=== PATIENT | female | born 1940 | race Caucasian/White ===

== ENCOUNTER → 2022-02-03 | Outpatient (CLI) | payer MEDICARE ==
[2022-02-03 09:36] LABS: BASO # 0.02 K/mm3 (0.02-0.10); EOS # 0.09 K/mm3 (0.04-0.40); HEMATOCRIT 37.7 % (37.0-47.0); HEMOGLOBIN 12.2 g/dL (12.5-16.0); LYMPH# 1.46 K/mm3 (1.50-4.00); MEAN CELL VOLUME 92 fl (78-100); MEAN CORPUSCULAR HEMOGLOBIN 30 pg (27-31); MEAN CORPUSCULAR HGB CONC 32 g/dL (33-37); MEAN PLATELET VOLUME 9.6 fl (7.4-10.4); MONO # 0.84 K/mm3 (0.20-0.80); NEU # 6.18 K/mm3 (1.40-6.50); PLATELET COUNT 273 K/mm3 (130-400); RED BLOOD COUNT 4.12 M/mm3 (4.10-5.30); RED CELL DISTRIBUTION WIDTH 15.1 % (11.5-14.5); WHITE BLOOD COUNT 8.6 K/mm3 (4.8-10.8)
[2022-02-03 09:46] LABS: ALBUMIN 3.6 g/dL (3.4-4.8); POTASSIUM 4.1 mmol/L (3.5-5.1); SODIUM 140 mmol/L (136-145)
[2022-02-03 09:48] LABS: CALCIUM 9.1 mg/dL (8.3-10.5)
[2022-02-03 09:49] LABS: GLUCOSE 87 mg/dL (65-105); TOTAL PROTEIN 6.6 g/dL (6.2-8.1)
[2022-02-03 09:50] LABS: CARBON DIOXIDE 22 mmol/L (23-31)
[2022-02-03 09:51] LABS: TOTAL BILIRUBIN 0.4 mg/dL (0.2-1.2)
[2022-02-03 09:54] LABS: AST-SGOT 21 U/L (5-34)
[2022-02-03 09:55] LABS: ALT/SGPT 19 U/L (0-55)
[2022-02-03 10:15] LABS: D-DIMER 1.22 mg/L FEU (0.15-0.50); TROPONIN-I < 0.030 ng/mL (<0.030)
== END ==
LOC: RAD 08:57
PROVIDERS: Nurse Practitioner Family
DX: R06.00 Dyspnea, unspecified (principal); M79.89 Other specified soft tissue disorders

== ENCOUNTER → 2022-02-27 | Outpatient (CLI) | payer MEDICARE ==
[2022-02-27 17:15] LABS: BASO # 0.04 K/mm3 (0.02-0.10); EOS # 0.22 K/mm3 (0.04-0.40); EOS % 2.2 % (1.0-5.0); HEMATOCRIT 39.2 % (37.0-47.0); HEMOGLOBIN 12.4 g/dL (12.5-16.0); LYMPH# 2.01 K/mm3 (1.50-4.00); MEAN CELL VOLUME 95 fl (78-100); MEAN CORPUSCULAR HEMOGLOBIN 30 pg (27-31); MEAN CORPUSCULAR HGB CONC 32 g/dL (33-37); MONO # 1.06 K/mm3 (0.20-0.80); NEU # 6.52 K/mm3 (1.40-6.50); PLATELET COUNT 230 K/mm3 (130-400); RED BLOOD COUNT 4.14 M/mm3 (4.10-5.30); RED CELL DISTRIBUTION WIDTH 15.2 % (11.5-14.5); WHITE BLOOD COUNT 9.9 K/mm3 (4.8-10.8)
[2022-02-27 17:27] LABS: ALBUMIN 3.7 g/dL (3.4-4.8); POTASSIUM 3.9 mmol/L (3.5-5.1)
[2022-02-27 17:28] LABS: CALCIUM 9.4 mg/dL (8.3-10.5)
[2022-02-27 17:29] LABS: TOTAL PROTEIN 6.9 g/dL (6.2-8.1)
[2022-02-27 17:31] LABS: TOTAL BILIRUBIN 0.3 mg/dL (0.2-1.2)
[2022-02-27 18:33] LABS: D-DIMER 1.44 mg/L FEU (0.15-0.50)
== END ==
LOC: LAB 17:06
PROVIDERS: Nurse Practitioner Family
DX: R22.42 Localized swelling, mass and lump, left lower limb (principal)

== ENCOUNTER → 2022-02-28 | Outpatient (CLI) | payer MEDICARE | LOC: RAD 10:26 | DX: R22.42 Localized swelling, mass and lump, left lower limb (principal) ==

== ENCOUNTER → 2022-04-11 | Outpatient (CLI) | payer MEDICARE ==
[~2022-04-11] MED LIST: ALENDRONATE SOD35 M1 PO; ALLOPURINOL300 M1 PO; AMITRIPTYLINE H25 M2 PO; CEPHALEXIN500 M1 PO; DULOXETINE30 MG PO; DULOXETINE60 MG PO; FERROUS SULFAT325 M4 PO; INDAPAMIDE1.25 M1 PO; JARDIANCE10 MG PO; NORCO 325 MG-51 TA1 PO; NORVASC 10MG10 MG PO; PERCOCET 325 MG1 TA2 PO; POTASSIUM CHLO20 ME4 PO; PROAIR HFA0.09 MG/AC IH; ROPINIROLE HYDRO4 MG PO
[2022-04-11 13:02] LABS: BASO # 0.02 K/mm3 (0.02-0.10); EOS # 0.12 K/mm3 (0.04-0.40); EOS % 1.7 % (1.0-5.0); HEMATOCRIT 32.2 % (37.0-47.0); HEMOGLOBIN 10.3 g/dL (12.5-16.0); MEAN CELL VOLUME 92 fl (78-100); MEAN CORPUSCULAR HEMOGLOBIN 30 pg (27-31); MEAN CORPUSCULAR HGB CONC 32 g/dL (33-37); MEAN PLATELET VOLUME 9.3 fl (7.4-10.4); NEU # 4.57 K/mm3 (1.40-6.50); PLATELET COUNT 306 K/mm3 (130-400); RED BLOOD COUNT 3.49 M/mm3 (4.10-5.30); RED CELL DISTRIBUTION WIDTH 15.6 % (11.5-14.5); WHITE BLOOD COUNT 7.1 K/mm3 (4.8-10.8)
[2022-04-11 13:05] LABS: ALBUMIN 3.2 g/dL (3.4-4.8)
[2022-04-11 13:07] LABS: CALCIUM 9.4 mg/dL (8.3-10.5)
[2022-04-11 13:08] LABS: TOTAL PROTEIN 6.4 g/dL (6.2-8.1)
[2022-04-11 13:10] LABS: TOTAL BILIRUBIN 0.2 mg/dL (0.2-1.2)
[2022-04-11 14:37] LABS: URINE APPEARANCE CLEAR; URINE BILIRUBIN NEGATIVE (NEGATIVE); URINE COLOR YELLOW; URINE KETONE NEGATIVE (NEGATIVE); URINE NITRATE NEGATIVE (NEGATIVE); URINE PROTEIN(semi-quant) TRACE (NEGATIVE)
[2022-04-11 14:38] LABS: URINE BLOOD NEGATIVE (NEGATIVE); URINE LEUKOCYTE ESTERASE 1+ (NEGATIVE); URINE MUCUS PRESENT (NOT PRESENT)
== END ==
LOC: LAB 12:33
PROVIDERS: Nurse Practitioner
DX: F32.A Depression, unspecified (principal); R44.1 Visual hallucinations

== ENCOUNTER 2022-04-17 09:44 | Outpatient (RCR) | payer MEDICARE | END 2022-05-08 | disposition home or self-care (01) | LOC: OT | DX: S42.202D Unspecified fracture of upper end of left humerus, subsequent encounter for fracture with routine healing (principal); X58.XXXD Exposure to other specified factors, subsequent encounter ==

== ENCOUNTER → 2022-05-01 | Outpatient (CLI) | payer MEDICARE | LOC: RAD 09:19 | DX: S42.132A Displaced fracture of coracoid process, left shoulder, initial encounter for closed fracture (principal); X58.XXXA Exposure to other specified factors, initial encounter ==

== ENCOUNTER → 2022-05-04 | Outpatient (CLI) | payer MEDICARE ==
[2022-05-04 15:10] LABS: ALBUMIN 3.6 g/dL (3.4-4.8); POTASSIUM 3.9 mmol/L (3.5-5.1)
[2022-05-04 15:11] LABS: CALCIUM 9.5 mg/dL (8.3-10.5)
[2022-05-04 15:14] LABS: TOTAL BILIRUBIN 0.3 mg/dL (0.2-1.2)
== END ==
LOC: LAB 14:35
PROVIDERS: Nurse Practitioner
DX: I87.2 Venous insufficiency (chronic) (peripheral) (principal); I50.9 Heart failure, unspecified

== ENCOUNTER → 2022-12-14 | Outpatient (CLI) | payer MEDICARE ==
[2022-12-14 12:42] LABS: BASO # 0.01 K/mm3 (0.02-0.10); EOS % 1.4 % (1.0-5.0); HEMATOCRIT 40.5 % (37.0-47.0); HEMOGLOBIN 12.8 g/dL (12.5-16.0); LYMPH# 1.69 K/mm3 (1.50-4.00); MEAN CELL VOLUME 88 fl (78-100); MEAN CORPUSCULAR HEMOGLOBIN 28 pg (27-31); MEAN CORPUSCULAR HGB CONC 32 g/dL (33-37); MEAN PLATELET VOLUME 9.9 fl (7.4-10.4); MONO # 0.65 K/mm3 (0.20-0.80); NEU # 4.82 K/mm3 (1.40-6.50); PLATELET COUNT 258 K/mm3 (130-400); RED CELL DISTRIBUTION WIDTH 15.7 % (11.5-14.5); WHITE BLOOD COUNT 7.3 K/mm3 (4.8-10.8)
[2022-12-14 12:49] LABS: ALBUMIN 3.7 g/dL (3.4-4.8)
[2022-12-14 12:50] LABS: POTASSIUM 4.1 mmol/L (3.5-5.1); SODIUM 138 mmol/L (136-145)
[2022-12-14 12:51] LABS: CALCIUM 9.9 mg/dL (8.3-10.5)
[2022-12-14 12:52] LABS: GLUCOSE 82 mg/dL (65-105); TOTAL PROTEIN 6.9 g/dL (6.2-8.1)
[2022-12-14 12:53] LABS: CARBON DIOXIDE 24 mmol/L (23-31)
[2022-12-14 12:54] LABS: TOTAL BILIRUBIN 0.3 mg/dL (0.2-1.2)
[2022-12-14 12:57] LABS: AST-SGOT 22 U/L (5-34)
[2022-12-14 12:58] LABS: ALT/SGPT 14 U/L (0-55)
[2022-12-14 13:49] LABS: TROPONIN-I < 0.030 ng/mL (<0.030)
== END ==
LOC: AMSURD 12:22
PROVIDERS: Nurse Practitioner
DX: R07.9 Chest pain, unspecified (principal)

== ENCOUNTER → 2022-12-19 | Outpatient (CLI) | payer MEDICARE ==
[2022-12-19 14:17] LABS: PROTHROMBIN TIME 9.9 SECONDS (9.0-12.0)
[2022-12-19 14:35] LABS: URINE APPEARANCE CLEAR; URINE BILIRUBIN NEGATIVE (NEGATIVE); URINE BLOOD NEGATIVE (NEGATIVE); URINE COLOR YELLOW; URINE GLUCOSE NEGATIVE (NEGATIVE); URINE KETONE NEGATIVE (NEGATIVE); URINE LEUKOCYTE ESTERASE NEGATIVE (NEGATIVE); URINE NITRATE NEGATIVE (NEGATIVE); URINE PROTEIN(semi-quant) TRACE (NEGATIVE); URINE UROBILINOGEN NORMAL (NORMAL)
== END ==
LOC: LAB 13:42
PROVIDERS: Nurse Practitioner
DX: Z01.811 Encounter for preprocedural respiratory examination (principal)

== ENCOUNTER → 2023-01-22 | Outpatient (CLI) | payer MEDICARE | LOC: RAD 10:59 | DX: Z96.611 Presence of right artificial shoulder joint (principal) ==

== ENCOUNTER → 2023-02-05 | Outpatient (CLI) | payer MEDICARE | LOC: RAD 11:11 | DX: M25.511 Pain in right shoulder (principal); Z96.611 Presence of right artificial shoulder joint ==

== ENCOUNTER → 2023-04-09 | Outpatient (CLI) | payer MEDICARE ==
[2023-04-09 09:45] LABS: BASO # 0.01 K/mm3 (0.02-0.10); EOS # 0.07 K/mm3 (0.04-0.40); EOS % 0.8 % (1.0-5.0); HEMATOCRIT 39.2 % (37.0-47.0); HEMOGLOBIN 12.3 g/dL (12.5-16.0); LYMPH# 2.11 K/mm3 (1.50-4.00); MEAN CELL VOLUME 85 fl (78-100); MEAN CORPUSCULAR HEMOGLOBIN 27 pg (27-31); MEAN CORPUSCULAR HGB CONC 31 g/dL (33-37); MEAN PLATELET VOLUME 9.9 fl (7.4-10.4); MONO # 0.94 K/mm3 (0.20-0.80); NEU # 6.03 K/mm3 (1.40-6.50); PLATELET COUNT 316 K/mm3 (130-400); RED CELL DISTRIBUTION WIDTH 14.4 % (11.5-14.5); WHITE BLOOD COUNT 9.2 K/mm3 (4.8-10.8)
[2023-04-09 09:58] LABS: ALBUMIN 3.8 g/dL (3.4-4.8)
[2023-04-09 09:59] LABS: CALCIUM 9.3 mg/dL (8.3-10.5)
[2023-04-09 10:00] LABS: TOTAL PROTEIN 7.4 g/dL (6.2-8.1)
[2023-04-09 10:02] LABS: PH-URINE 5.5 (5.0 - 8.0); TOTAL BILIRUBIN 0.3 mg/dL (0.2-1.2); URINE APPEARANCE CLEAR (CLEAR); URINE BILIRUBIN NEGATIVE (NEGATIVE); URINE BLOOD TRACE-INTACT (NEGATIVE); URINE COLOR YELLOW (YELLOW); URINE GLUCOSE 2+ (NEGATIVE); URINE KETONE NEGATIVE (NEGATIVE); URINE LEUKOCYTE ESTERASE NEGATIVE (NEGATIVE); URINE NITRATE NEGATIVE (NEGATIVE); URINE PROTEIN(semi-quant) 1+ (NEGATIVE)
[2023-04-09 10:10] LABS: URINE MUCUS PRESENT (NOT PRESENT)
[2023-04-09 10:24] LABS: PROTHROMBIN TIME 9.8 SECONDS (9.0-12.0)
== END ==
LOC: LAB 09:11
PROVIDERS: Nurse Practitioner
DX: Z01.818 Encounter for other preprocedural examination (principal)

== ENCOUNTER → 2023-07-17 | Outpatient (CLI) | payer MEDICARE ==
[2023-07-17 12:30] LABS: BASO # 0.02 K/mm3 (0.02-0.10); EOS # 0.09 K/mm3 (0.04-0.40); EOS % 1.2 % (1.0-5.0); HEMATOCRIT 35.6 % (37.0-47.0); HEMOGLOBIN 11.1 g/dL (12.5-16.0); LYMPH# 1.55 K/mm3 (1.50-4.00); MEAN CELL VOLUME 85 fl (78-100); MEAN CORPUSCULAR HEMOGLOBIN 27 pg (27-31); MEAN CORPUSCULAR HGB CONC 31 g/dL (33-37); MEAN PLATELET VOLUME 9.7 fl (7.4-10.4); MONO # 0.69 K/mm3 (0.20-0.80); NEU # 4.99 K/mm3 (1.40-6.50); PLATELET COUNT 337 K/mm3 (130-400); RED BLOOD COUNT 4.17 M/mm3 (4.10-5.30); RED CELL DISTRIBUTION WIDTH 15.7 % (11.5-14.5); WHITE BLOOD COUNT 7.3 K/mm3 (4.8-10.8)
[2023-07-17 12:41] LABS: ALBUMIN 3.5 g/dL (3.4-4.8)
[2023-07-17 12:42] LABS: CALCIUM 9.9 mg/dL (8.3-10.5)
[2023-07-17 12:43] LABS: TOTAL PROTEIN 6.6 g/dL (6.2-8.1)
[2023-07-17 12:45] LABS: TOTAL BILIRUBIN 0.3 mg/dL (0.2-1.2)
== END ==
LOC: RAD 11:57
PROVIDERS: Nurse Practitioner
DX: L03.115 Cellulitis of right lower limb (principal); M25.561 Pain in right knee; Z86.79 Personal history of other diseases of the circulatory system; Z96.651 Presence of right artificial knee joint

== ENCOUNTER → 2023-09-25 | Outpatient (CLI) | payer MEDICARE | LOC: LAB 10:13 | DX: E55.9 Vitamin D deficiency, unspecified (principal) ==

== ENCOUNTER → 2023-09-30 | Outpatient (CLI) | payer MEDICARE | LOC: RAD 12:15 | DX: S09.90XA Unspecified injury of head, initial encounter (principal); Z87.39 Personal history of other diseases of the musculoskeletal system and connective tissue; W01.0XXA Fall on same level from slipping, tripping and stumbling without subsequent striking against object, initial encounter; Z96.611 Presence of right artificial shoulder joint ==

== ENCOUNTER → 2023-10-02 | Outpatient (CLI) | payer MEDICARE | LOC: RAD 09:15 | DX: M81.0 Age-related osteoporosis without current pathological fracture (principal); S09.90XA Unspecified injury of head, initial encounter; R79.1 Abnormal coagulation profile; X58.XXXA Exposure to other specified factors, initial encounter ==

== ENCOUNTER → 2023-10-23 | Outpatient (CLI) | payer MEDICARE ==
[~2023-10-23] MED LIST changes: +Denosumab 60 MG/ML SYRINGE SQ ONE
[2023-10-23 10:33] VITALS: BP 112/68
== END ==
LOC: AMSURD 08:53 → RAD 08:53
DX: S42.121A Displaced fracture of acromial process, right shoulder, initial encounter for closed fracture (principal); M81.0 Age-related osteoporosis without current pathological fracture; Z96.611 Presence of right artificial shoulder joint; X58.XXXA Exposure to other specified factors, initial encounter
CPT/HCPCS: J0897

== ENCOUNTER 2024-01-03 14:08 | Emergency (ER) | payer MEDICARE ==
[~2024-01-03] VITALS: Ht 147.3 cm; Wt 53.2 kg
[~2024-01-03 14:08] MED LIST changes: -Denosumab 60 MG/ML SYRINGE SQ ONE
[2024-01-03 14:36] VITALS: BP 118/67
[2024-01-03] MEDS ORDERED: VITAMIN D3125 MC4 PO (14:57)
[2024-01-03] MEDS ORDERED: INDAPAMIDE1.25 M1 PO (14:58)
[2024-01-03] MEDS ORDERED: AMITRIPTYLINE H25 M2 PO (14:58)
[2024-01-03] MEDS ORDERED: AMITRIPTYLINE H50 M1 PO (14:58)
[2024-01-03] MEDS ORDERED: JARDIANCE10 MG PO (14:59)
[2024-01-03 15:54] LABS: BASO # 0.01 K/mm3 (0.02-0.10); EOS # 0.11 K/mm3 (0.04-0.40); EOS % 1.3 % (1.0-5.0); HEMATOCRIT 35.9 % (37.0-47.0); HEMOGLOBIN 11.6 g/dL (12.5-16.0); LYMPH# 1.88 K/mm3 (1.50-4.00); MEAN CELL VOLUME 87 fl (78-100); MEAN CORPUSCULAR HEMOGLOBIN 28 pg (27-31); MEAN CORPUSCULAR HGB CONC 32 g/dL (33-37); MEAN PLATELET VOLUME 9.8 fl (7.4-10.4); NEU # 5.89 K/mm3 (1.40-6.50); PLATELET COUNT 236 K/mm3 (130-400); RED BLOOD COUNT 4.15 M/mm3 (4.10-5.30); RED CELL DISTRIBUTION WIDTH 15.7 % (11.5-14.5); WHITE BLOOD COUNT 8.7 K/mm3 (4.8-10.8)
== END 2024-01-03 16:16 | disposition home or self-care (01) ==
LOC: ED 14:08
PROVIDERS: Family Medicine
DX: R19.5 Other fecal abnormalities (principal); F17.200 Nicotine dependence, unspecified, uncomplicated

== ENCOUNTER → 2024-01-16 | Outpatient (CLI) | payer MEDICARE ==
[~2024-01-16] MED LIST changes: +AMITRIPTYLINE H50 M1 PO; +VITAMIN D3125 MC4 PO
== END ==
LOC: RAD 13:32
DX: M48.02 Spinal stenosis, cervical region (principal); I67.82 Cerebral ischemia; R90.82 White matter disease, unspecified

== ENCOUNTER → 2024-05-14 | Outpatient (CLI) | payer MEDICARE ==
[~2024-05-14] VITALS: Ht 147.3 cm; Wt 53.2 kg
[~2024-05-14] MED LIST changes: +Denosumab 60 MG/ML SYRINGE SQ ONE
[2024-05-14 16:24] VITALS: BP 143/74
== END ==
LOC: AMSURD 15:51
DX: M81.0 Age-related osteoporosis without current pathological fracture (principal)
CPT/HCPCS: J0897

== ENCOUNTER 2024-05-16 13:54 | Emergency (ER) | payer MEDICARE ==
[~2024-05-16] VITALS: Ht 152.4 cm; Wt 52.0 kg
[~2024-05-16 13:54] MED LIST changes: -Denosumab 60 MG/ML SYRINGE SQ ONE
[2024-05-16 14:26] LABS: BASO # 0.01 K/mm3 (0.02-0.10); EOS # 0.04 K/mm3 (0.04-0.40); EOS % 0.6 % (1.0-5.0); HEMATOCRIT 36.2 % (37.0-47.0); HEMOGLOBIN 11.7 g/dL (12.5-16.0); LYMPH# 1.63 K/mm3 (1.50-4.00); MEAN CELL VOLUME 89 fl (78-100); MEAN CORPUSCULAR HEMOGLOBIN 29 pg (27-31); MEAN CORPUSCULAR HGB CONC 32 g/dL (33-37); MEAN PLATELET VOLUME 9.7 fl (7.4-10.4); MONO # 0.79 K/mm3 (0.20-0.80); PLATELET COUNT 212 K/mm3 (130-400); RED BLOOD COUNT 4.06 M/mm3 (4.10-5.30); RED CELL DISTRIBUTION WIDTH 14.8 % (11.5-14.5); WHITE BLOOD COUNT 6.6 K/mm3 (4.8-10.8)
[2024-05-16 14:33] LABS: ALBUMIN 3.5 g/dL (3.4-4.8)
[2024-05-16 14:35] LABS: CALCIUM 9.7 mg/dL (8.3-10.5)
[2024-05-16 14:36] LABS: TOTAL PROTEIN 6.6 g/dL (6.2-8.1)
[2024-05-16 14:38] LABS: TOTAL BILIRUBIN 0.4 mg/dL (0.2-1.2)
[2024-05-16 16:13] VITALS: BP 131/74
== END 2024-05-16 16:18 | disposition home or self-care (01) ==
LOC: ED 13:54
PROVIDERS: Family Medicine
DX: M62.81 Muscle weakness (generalized) (principal); R29.6 Repeated falls; F17.210 Nicotine dependence, cigarettes, uncomplicated